=== PATIENT | male | born 1930 | race Caucasian/White ===

== ENCOUNTER 2018-07-13 07:43 | Observation (INO) | payer MEDICARE, OTHER ==
[2018-07-13] MEDS ORDERED: Ondansetron ODT 4 MG TAB PO PRN (09:39)
[2018-07-13] MEDS ORDERED: Acetaminophen 325 MG TAB PO PRN (09:39)
[2018-07-13] MEDS ORDERED: Nitroglycerin 0.4 MG TAB (25 Tab Bottle) PO PRN (09:39)
--- NOTE | 2018-07-13 09:42 | PDOC.FPRHP ---
- History of Present Illness Chief Complaint: Chest pain History of Present Illness: This is an 88 yo male with a PMH of HTN, DM2, and GERD who presents to the ED from an outside ED with a cc of chest pain. He states that he has been having a pressure on his chest during the night for the last 5 nights. Two of the night, including last night, he reports the pain did not go away on its own. He states that last night the pain started at about 1800 and continued. He reports feeling hot all over during these episodes. He denies associated SOB, nausea, diaphoresis, or dizziness. He denies radiation of the pain and states that currently he is not in pain. He reports recently starting bystolic per his PCP for his HTN. He reports very elevated blood pressures in the past month, however when he checked his BP at home during these episodes, his BP or pulse were not too high. ED Course: Aspirin 324 mg - Allergies/Adverse Reactions Allergies Allergy/AdvReac Type Severity Reaction Status Date / Time No Known Drug Allergies Allergy Verified 07/13/18 14:27 - Home Medications Medication Instructions Recorded Confirmed Type Acetaminophen With Codeine 600 mg PO BID 04/25/17 07/13/18 History [Tylenol with Codeine #3] Doxazosin Mesylate [Cardura] 8 mg PO DAILY 04/25/17 07/13/18 History Esomeprazole Magnesium [NexIUM] 20 mg PO DAILY 04/25/17 07/13/18 History amLODIPine Besylate [Norvasc] 10 mg PO HS 04/25/17 07/13/18 History metFORMIN [Glucophage] 500 mg PO DAILY 04/25/17 07/13/18 History Insulin Aspart [Novolog Flexpen] 8 unit SQ TID 07/13/18 07/13/18 History Nebivolol HCl [Bystolic] 5 mg PO HS 07/13/18 07/13/18 History Tamsulosin HCl [Flomax] 0.4 mg PO HS 07/13/18 07/13/18 History - History PMHx: HTN, GERD, DM2, Osteoarthritis, hx of prostate cancer, BPH, chronic back pain PSHx: Prostate surgery in 2006 FHx: Noncontributory Social: Denies T/D, occasional >monthly alcohol use - Review of Systems General: denies: fever/chills, weight/appetite/sleep changes, night sweats Eyes: denies: eye pain ENT: denies: nasal congestion, rhinorrhea Respiratory: denies: cough, congestion, shortness of breath Cardiovascular: reports: chest pain. denies: palpitation, edema Gastrointestinal: denies: nausea, vomiting, diarrhea, constipation Skin: denies: rashes, lesions Musculoskeletal: reports: pain (back pain) Neurological: denies: numbness, syncope, weakness Psychological: denies: anxiety, depression - Vital signs BP: 149/100 HR: 82 RR: 16 Tmax: 98.1 Pox: 98% on RA Wt: 86.18 kg - Physical Exam Constitutional: NAD, awake, alert and oriented, well developed HEENT: normocephalic and atraumatic, EOMI, MMM Neck: supple, FROM, trachea midline, no JVD Chest: no-tender to palpation, no lesions Heart: RRR, normal S1/S2, other (2/6 systolic murmur) Lungs: CTAB, no respiratory distress, good air movement Abdomen: soft, non-tender, bowel sounds present, no masses/distention Musculoskeletal: normal structure, normal tone, ROM grossly normal Neurological: no focal deficit, CN II-XII intact Skin: no rash/lesions, capillary refill <2 seconds Heme/Lymphatic: no unusual bruising or bleeding, no purpura Psychiatric: normal mood and affect FMR H&P: Results - Labs Lab results: CBC WBC 5.0 Hgb 12.7 Hct 39.1 Plt 112 MCV 95.8 CMP Na 138 K 4.3 Cl 102 Bicarb 25 BUN 24 Cr 1.00 GFR 70 BG 207 ALT 21 AST 17 Bili 0.6 Albumin 4.4 Lactic acid 1.2 - EKG Interpretation EKG: sinus rhythm, PVC, RBBB (new from previous EKG) - Radiology Interpretation Chest x-ray Status: image reviewed by me, report reviewed by me (No acute cardiopulmonary processes.) FMR H&P: A/P - Problem List (1) Atypical chest pain Current Visit: Yes Status: Acute Code(s): R07.89 - OTHER CHEST PAIN (2) History of prostate cancer Current Visit: Yes Status: Acute Code(s): Z85.46 - PERSONAL HISTORY OF MALIGNANT NEOPLASM OF PROSTATE (3) Chronic back pain Current Visit: Yes Status: Acute Code(s): M54.9 - DORSALGIA, UNSPECIFIED; G89.29 - OTHER CHRONIC PAIN (4) DM type 2 (diabetes mellitus, type 2) Current Visit: No Status: Chronic Qualifiers: Diabetes mellitus rn child insulin use: with senior care use Diabetes mellitus complication status: with unspecified complications Qualified Code(s) : E11.8 - Type 2 diabetes mellitus with unspecified complications; Z79.4 - senior living (current) use of insulin (5) GERD (gastroesophageal reflux disease) Current Visit: No Status: Chronic Code(s): K21.9 - GASTRO-ESOPHAGEAL REFLUX DISEASE WITHOUT ESOPHAGITIS Qualifiers: Esophagitis presence: esophagitis presence not specified Qualified Code(s) : K21.9 - Gastro-esophageal reflux disease without esophagitis (6) HTN (hypertension) Current Visit: No Status: Chronic Code(s): I10 - ESSENTIAL (PRIMARY) HYPERTENSION Qualifiers: Hypertension type: essential hypertension Qualified Code(s): I10 - Essential (primary) hypertension - Plan This is a 88 yo male with a pmh HTN, DM2, GERD, osteoarthritis Atypical chest pain stable angina vs GERD -Admit to tele obs -Trop negative x2 -CXR negative for acute cardiopulmonary process -EKG shows new RBBB and a PVC -Pt. has received aspirin -Heart score of 5 -Pt will receive treadmill cardiolite stress test and pt. will likely be discharged if normal -PRN nitro HTN -Holding home medications for stress test GERD -Continue home nexium DM2 -Accuchecks and SSI -Continue home metformin Osteoarthritis -Continue home meds Chronic back pain -Continue home meds Hx of prostate cancer Code: Full Prophylaxis: none Family: none at bedside Disposition: home if normal stress test FMR H&P: Upper Level - Pertinent history 88M presenting to outside ED for one week history of CP. Patient denies actual pain- describes it as a burning sensation that begins in his stomach and radiates up his chest. He feels a warmth across his entire chest when he lays down at night. Symptoms only occur when he lays down. History significant for HTN, DMII, and GERD. He denies associated SOB, nausea, diaphoresis, or dizziness. He denies radiation of the pain and states that currently he is not in pain. He recently started Bystolic three days ago. - Pertinent findings CXR: no consolidations trop: negative - Plan Date/Time: 07/13/18 0942 Atypical chest pain, likely GERD: admit tele/obs. Trend troponins. Cardiology has been consulted from the ED. EKG concerning for a new RBBB. Patient is asymptomatic currently, but will have prn morphine, nitro, and oxygen available. Heart score of 5 so he will undergo stress test. GI cocktail available. I, Ghualm Dobbs, have evaluated this patient and agree with findings/plan as outlined by international relations teacher resident. Pertinent changes/additions are listed here.
[2018-07-13] MEDS ORDERED: Insulin Regular 300 UNITS/3 ML VIAL SC PRN ×2 (11:42)
[2018-07-13] MEDS ORDERED: Dextrose 5% in Water 1,000 ML IV PRN (11:42)
[2018-07-13] MEDS ORDERED: Dextrose 50% Abboject 50 ML SYRINGE SLOW IVP PRN (11:42)
[2018-07-13 12:40] LABS: Troponin I Less than 0.010 ng/mL (< 0.028)
[2018-07-13 14:48] VITALS: BMI 26.8
[2018-07-13 15:24] LABS: Troponin I Less than 0.010 ng/mL (< 0.028)
[2018-07-13] MEDS: Acetaminophen/Codeine 30-300mg Tablet PO SCH (17:09)
[2018-07-13] MEDS ORDERED: Melatonin 3 MG TAB PO PRN (20:50)
[2018-07-13] MEDS ORDERED: Doxazosin Mesylate 4 MG TAB PO SCH (21:00)
[2018-07-13] MEDS ORDERED: Amlodipine 10 MG TAB PO SCH (21:00)
[2018-07-13] MEDS ORDERED: Tamsulosin HCl 0.4 MG CAP PO SCH (21:00)
--- NOTE | 2018-07-14 02:16 | CON ---
DATE OF CONSULTATION: 07/13/2018 REASON FOR CONSULTATION: Burning in his chest. HISTORY OF PRESENT ILLNESS: Mr. Harinder Chavez is a delightful 88-year-old gentleman. He has a history of esophageal reflux. He says recently he has been having increasing muscle burning in his chest despite taking what he thinks is Prilosec 20 mg a day. He came to the hospital where he has been admitted for evaluation in view of increased risk factors for coronary disease. He does not report any exertional symptoms. PAST MEDICAL HISTORY: 1. He has a long history of diabetes. 2. Esophageal reflux. 3. Hypertension. MEDICATIONS: Prior to admission; 1. Doxazosin. 2. Insulin. 3. Recently started on Bystolic. 4. Metformin. 5. Amlodipine. 6. Tamsulosin. SOCIAL HISTORY: No alcohol or tobacco. REVIEW OF SYSTEMS: CONSTITUTIONAL: No significant weight gain or loss. VISION: No changes. HEARING: No changes. PULMONARY: No cough or wheezing. GASTROINTESTINAL: No nausea, vomiting or diarrhea. SKIN: No rashes. NEUROLOGIC: No unilateral weakness or numbness. PSYCHIATRIC: No unusual depression or anxiety. HEMATOLOGIC: No unusual bruising. GENITOURINARY: No burning with urination. MUSCULOSKELETAL: No unusual joint pains. PHYSICAL EXAMINATION: GENERAL: This is a delightful elderly gentleman, in no distress. VITAL SIGNS: Blood pressure 157/74, pulse 90, it is regular. EYES: Sclerae nonicteric. MOUTH: Mucous membranes were moist. NECK: Supple. No lymphadenopathy. LUNGS: Clear. No wheezing, rales, or rhonchi. CARDIAC: Normal S1, normal S2. There is a 2/6 systolic murmur, right upper sternal border. No diastolic murmur. No S3. ABDOMEN: Soft, nontender. EXTREMITIES: No clubbing, cyanosis, or edema. SKIN: Warm and dry. PSYCHIATRIC: Mood and affect normal. NEUROLOGIC: Grossly normal. PULSES: Good posterior tibial and dorsalis pedis pulse bilaterally. LABORATORY DATA: Pertinent laboratory, troponin levels were all negative. The EKG did not show any ischemic changes. Rhythm strip showed occasional PVCs. ASSESSMENT: Chest discomfort suspicious for esophageal reflux. PLAN: Stress test to be done tomorrow. He has a risk factor for coronary disease as mentioned. Most recent LDL is 72. Job ID: [id number]
--- NOTE | 2018-07-14 05:34 | PDOC.FM ---
- Subjective Subjective: Pt states that he did not sleep as well overnight due to a different environment. He states that his same chest pain happened last night however it happened at ~3 in the morning. He believes this is due to his BPH meds being given 2 hours later. At the time of that pain, his sugar was 100 points lower. He denies any SOB, diaphoresis, or nausea. - Objective MAR Reviewed: Yes Vital Signs & Weight: Vital Signs (12 hours) Temp Pulse Resp BP Pulse Ox 07/14/18 02:34 97.8 F 92 20 162/74 H 94 L 07/13/18 23:10 97.8 F 88 16 162/82 H 95 07/13/18 19:25 98.1 F 90 20 148/75 H 94 L Weight Weight 89.811 kg I&O: 07/12/18 07/13/18 07/14/18 06:59 06:59 06:59 Intake Total 360 Output Total 350 Balance 10 <Albino Pena - Last Filed: 07/14/18 08:15> - Objective Vital Signs & Weight: Vital Signs (12 hours) Temp Pulse Resp BP BP Pulse Ox 07/14/18 11:29 97.7 F 111 H 16 181/90 H 98 07/14/18 07:39 97.9 F 96 16 166/91 H 96 07/14/18 02:34 97.8 F 92 20 162/74 H 94 L Weight Weight 89.811 kg I&O: 07/13/18 07/14/18 07/15/18 06:59 06:59 06:59 Intake Total 720 Output Total 500 Balance 220 <Lenin Melissa - Last Filed: 07/14/18 12:58> Phys Exam - Physical Examination Constitutional: NAD HEENT: moist MMs Neck: no JVD Respiratory: no wheezing, clear to auscultation bilateral Cardiovascular: RRR 2/6 systolic murmur Gastrointestinal: soft, non-tender, no distention, positive bowel sounds Musculoskeletal: no edema, pulses present Neurological: moves all 4 limbs Psychiatric: normal affect, A&O x 3 Skin: cap refill <2 seconds <Albino Pena - Last Filed: 07/14/18 08:15> Dx/Plan (1) Atypical chest pain Code(s): R07.89 - OTHER CHEST PAIN Status: Acute (2) History of prostate cancer Code(s): Z85.46 - PERSONAL HISTORY OF MALIGNANT NEOPLASM OF PROSTATE Status: Acute (3) Chronic back pain Code(s): M54.9 - DORSALGIA, UNSPECIFIED; G89.29 - OTHER CHRONIC PAIN Status: Acute (4) DM type 2 (diabetes mellitus, type 2) Status: Chronic Qualifiers: Diabetes mellitus child care sitter insulin use: with child care sitter use Diabetes mellitus complication status: with unspecified complications Qualified Code(s) : E11.8 - Type 2 diabetes mellitus with unspecified complications; Z79.4 - shelter (current) use of insulin (5) GERD (gastroesophageal reflux disease) Code(s): K21.9 - GASTRO-ESOPHAGEAL REFLUX DISEASE WITHOUT ESOPHAGITIS Status: Chronic Qualifiers: Esophagitis presence: esophagitis presence not specified Qualified Code(s) : K21.9 - Gastro-esophageal reflux disease without esophagitis (6) HTN (hypertension) Code(s): I10 - ESSENTIAL (PRIMARY) HYPERTENSION Status: Chronic Qualifiers: Hypertension type: essential hypertension Qualified Code(s): I10 - Essential (primary) hypertension - Plan Plan: This is a 88 yo male with a h HTN, DM2, GERD, osteoarthritis Atypical chest pain stable angina vs GERD -Admit to tele obs -Trop negative x3 -CXR negative for acute cardiopulmonary process -EKG shows new RBBB and a PVC -Pt. has received aspirin -Heart score of 5 -Pt will receive treadmill cardiolite stress test and pt. will likely be discharged if normal -PRN nitro HTN -Holding home medications for stress test GERD -Continue home nexium DM2 -Accuchecks and SSI -Continue home metformin Osteoarthritis -Continue home meds Chronic back pain -Continue home meds Hx of prostate cancer <Albino Pena - Last Filed: 07/14/18 08:15> Attending Addendum - Attending Addendum Date/Time: 07/14/18 [id number] I personally evaluated the patient and discussed the management with Dr. Pena. I agree with the History, Examination, Assessment and Plan documented above with any addition or exceptions noted below. Pain free now. Vitals stable. Lungs CTA. Completed Stress cardiolyte, awaiting results. Pt. had recurrence of symptoms overnight, thought it might be temporally related to Prostate meds administered off usual time, but this seems unlikely as he's taken these for years. Glucoses vary fairly widely, so this may also be a factor. No armin hypoglycemia but does swing from one measurement to another. If cardiolyte is normal, can be released to f/u with PCP. <Lenin Melissa - Last Filed: 07/14/18 12:58>
[2018-07-14] MEDS: metFORMIN 500 MG TAB PO SCH ×2 (09:20→11:33)
[2018-07-14] MEDS: Acetaminophen/Codeine 30-300mg Tablet PO SCH ×2 (09:20→11:32)
--- NOTE | 2018-07-14 14:03 | NM ---
MYOCARDIAL PERFUSION STUDY: DATE: 07/14/18 HISTORY: Chest pain. RADIOPHARMACEUTICALS: 31.5 mCi technetium-99m sestamibi, IV at stress. 9.9 mCi technetium-99m sestamibi, IV at rest. This examination was performed as an exercise stress myocardial perfusion study following routine [facility] protocol. Resting hear rate is 97 beats/minute with maximal heart rate of 169 beats/minute, which represents 129% of the maximum predictive effective heart rate. FINDINGS: There is no significant reversible defects are seen between the stress and resting acquisitions. The quantitative analysis also shows no significant reversible defect. Gated images show normal ventricul ar wall motion and wall thickening. The calculated left ventricular ejection fraction is 51%. IMPRESSION: 1. Normal myocardial perfusion study without evidence of a reversible defect seen to suggest ischemi a. 2. Left ventricular ejection fraction of 51%, which is diminished from 67% on prior study on 5. POS: [facility]
[2018-07-14 16:20] VITALS: BP 138/84; TEMP 98.1
--- NOTE | 2018-07-16 13:47 | EKG ---
Test Reason : CP Blood Pressure : / mmHG Vent. Rate : 082 BPM Atrial Rate : 082 BPM P-R Int : 182 ms QRS Dur : 128 ms QT Int : 388 ms P-R-T Axes : 060 063 030 degrees QTc Int : 453 ms Sinus rhythm with occasional Premature ventricular complexes Possible Left atrial enlargement Right bundle branch block Abnormal ECG Confirmed by AURORA BELL DO ([id number]), index editor FLAKITA LINK ([id number] on 07/16/2018 1:47:29 PM Referred By: Confirmed By:AURORA BELL DO
--- NOTE | 2018-07-20 17:43 | STRESS ---
Acquisition Time: 2018-07-14 09:49:37 Total Exercise Time: 00:06:01 Test Indications: CHEST PAIN Medications: Protocol: JADEN Max HR: 169 BPM 129% of Pred: 131 BPM Max BP: 168/098 mmHG Max Work Load: 7.0 METS RESTING ECG: NORMAL SINUS RHYTHM AT 98 BPM WITH INCOMPLETE RIGHT BUNDLE BRANCH BLOCK SYMPTOMS: DYSPNEA ON EXERTION NORMAL BP RESPONSE ECG STRESS: NO SIGNIFICANT CHANGES INTERPRETATION: NEGATIVE GXT / AWAIT NUCLEAR IMAGES FOR DEFINITIVE DIAGNOSIS COMMENTS: TRIGEMINY IN RECOVERY-RESOLVED IN 6 MIN / INJETED WITH CARDIOLITE AT 5:00 Confirmed by SANDRA CLEMONS M.D. ([id number]) on 07/20/2018 5:42:21 PM Referred By: DO PELAYO Confirmed By:SANDRA CLEMONS M.D.
== END 2018-07-14 17:59 | disposition home or self-care (01) ==
LOC: ERS 07:43 → ERHOLD 09:05 → 2SW 13:14
PROVIDERS: ADMIT Family Medicine; ATTEND Family Medicine
DX: R07.89 Other chest pain (principal); I10 Essential (primary) hypertension; E11.9 Type 2 diabetes mellitus without complications; K21.9 Gastro-esophageal reflux disease without esophagitis; M19.90 Unspecified osteoarthritis, unspecified site; M54.9 Dorsalgia, unspecified; N40.0 Benign prostatic hyperplasia without lower urinary tract symptoms; Z85.46 Personal history of malignant neoplasm of prostate; Z79.4 Long term (current) use of insulin; Z79.891 Long term (current) use of opiate analgesic; Z79.899 Other long term (current) drug therapy; Z98.890 Other specified postprocedural states
CPT/HCPCS: 78452; 82962 ×2; 84484; 93005; 93017; 94760; 99285; A9500; G0378; 36415; 36416